=== PATIENT | female | born 1950 ===

== ENCOUNTER 2017-03-09 20:01 | Outpatient (CLI) | payer OTHER | END 2017-03-09 20:02 | disposition EMS.NT | LOC: EMS 20:01 | PROVIDERS: ATTEND Surgery | DX: Z03.89 Encounter for observation for other suspected diseases and conditions ruled out (principal) ==

== ENCOUNTER → 2021-04-29 | Outpatient (CLI) | payer MEDICARE, OTHER | END | disposition short-term general hospital (02) | LOC: EMS 14:32 | DX: I49.9 Cardiac arrhythmia, unspecified (principal) | CPT/HCPCS: A0425; A0427 ==